=== PATIENT | female | born 1955 | race Hispanic/Latino ===

== ENCOUNTER 2017-09-22 08:32 | Emergency (ER) | payer BC ==
[~2017-09-22] VITALS: Ht 165.1 cm; Wt 79.4 kg
--- NOTE | 2017-09-22 11:12 | Diagnostic Imaging Report ---
PROCEDURE:L-SPINE COMPLETE COMPARISON:None. INDICATIONS:LOW BACK PAIN FINDINGS: There are 5 lumbar-type vertebral bodies. The vertebral bodies are well-aligned without evidence of spondylolisthesis. Status post L5-S1 posterior fusion with discectomy. Hardware is intact. There are no fractures, lytic or blastic lesions. Degenerative changes of lumbar spine, especially at L3-L4. The sacroiliac joints are unremarkable. CONCLUSION: No acute lumbar spine abnormality. Status post L5-S1 posterior fusion. Degenerative changes, most notable at L3-L4. Dictated by: Benjie Ansari M.D. on 09/22/2017 at 11:20 Electronically approved by: Benjie Ansari M.D. on 09/22/2017 at 11:20
== END 2017-09-22 11:44 | disposition home or self-care (01) ==
LOC: ER 08:32
DX: S39.012A Strain of muscle, fascia and tendon of lower back, initial encounter (principal); M47.817 Spondylosis without myelopathy or radiculopathy, lumbosacral region; M54.41 Lumbago with sciatica, right side; Y93.F9 Activity, other caregiving; Y92.238 Other place in hospital as the place of occurrence of the external cause
CPT/HCPCS: 72110; 99282